=== PATIENT | female | born 1985 ===

== ENCOUNTER 2021-10-07 06:18 | Day surgery (SDC) | payer OTHER ==
[~2021-10-07 06:18] MED LIST: CARAFATE1 GM/10 ML; GLUMETZA500 MG; ZESTRIL5 MG
[2021-10-07] MEDS ORDERED: PERCOCET 5-3251 EACH PO (13:47)
== END 2021-10-07 17:00 | disposition home or self-care (01) ==
LOC: CIR.AMB 06:18
PROVIDERS: ATTEND Surgery
DX: K80.10 Calculus of gallbladder with chronic cholecystitis without obstruction (principal); Z20.822 Contact with and (suspected) exposure to COVID-19

== ENCOUNTER 2023-03-26 21:35 | Emergency (ER) | payer OTHER ==
[~2023-03-26] VITALS: Ht 157.5 cm; Wt 104.3 kg
[~2023-03-26 21:35] MED LIST changes: +CYCLOBENZAPRINE10 MG PO; +NABUMETONE750 MG PO; +PERCOCET 5-3251 EACH PO
== END 2023-03-26 22:56 | disposition home or self-care (01) ==
LOC: ER 21:35
DX: M54.32 Sciatica, left side (principal); E11.9 Type 2 diabetes mellitus without complications; Z79.84 Long term (current) use of oral hypoglycemic drugs; Z87.09 Personal history of other diseases of the respiratory system; Z88.0 Allergy status to penicillin

== ENCOUNTER 2023-04-04 10:41 | Emergency (ER) | payer OTHER ==
[~2023-04-04] VITALS: Ht 157.5 cm; Wt 104.3 kg
[2023-04-04] MEDS ORDERED: SYNJARDY 5-1,01 EACH PO (11:23)
[2023-04-06] MEDS ORDERED: NABUMETONE750 MG PO (10:13)
[2023-04-06] MEDS ORDERED: CYCLOBENZAPRINE10 MG PO (10:14)
== END 2023-04-04 15:42 | disposition home or self-care (01) ==
LOC: ER 10:41
DX: M54.50 Low back pain, unspecified (principal); R25.2 Cramp and spasm; Z88.0 Allergy status to penicillin